=== PATIENT | female | born 1965 | race Caucasian/White ===

== ENCOUNTER → 2021-04-09 | Outpatient (CLI) | payer MEDICARE ==
[2015-07-24 07:52] VITALS: BP 112/78
[~2021-04-09] MED LIST: ALPR0.5T PO; ARIP5TAB13 PO; BUPR150T8 PO; DEXT30CA6 PO; DULO60CA7 PO; ESTR1TAB17 PO; OXYC1TAB7 PO
--- NOTE | 2021-04-09 16:56 | KCIC ---
CT of the thoracic spine without comparison for back pain, history of 2 spinal CORD stimulators. TECHNIQUE: Contiguous axial CT images are obtained through the thoracic spine. Sagittal and coronal r eformations are evaluated. FINDINGS: There are postsurgical changes of the stomach. There is a hiatal hernia, and the small prox imal gastric pouch is intrathoracic. There is postsurgical change of ACDF from C5 through C7.There ar e 2 spine stimulator leads, one of which ascends into the cervical canal of the cranial margin of the study, and the second of which terminates within the cervical canal posteriorly at T1. There is a se cond set of spine stimulator leads which terminate at T6. There is no fracture, dislocation, or acute osseous abnormality in any location. There is no alignment abnormality. There are small anterior ost eophytes at multiple levels. No significant bulky posterior osteophytes and no CT evidence of central canal stenosis. There is narrowing of the intervertebral disc space at T4-5, with vertebral body fus ion on the left, with left facet arthrosis, the combination of which results in marked reduction of t he foraminal diameter at this level, certainly possible of producing some degree of nerve root imping ement. This could be better evaluated with CT myelography if clinically warranted. Degenerative spond ylosis is seen at T9 as well with bulky marginal osteophytes, but no significant bony central canal o r neural foraminal stenosis. IMPRESSION: 1. Degenerative spondylosis most prominent T4-5 with vertebral body fusion on the left, and facet art hrosis, resulting in significant left neural foraminal narrowing, certainly possible producing some d egree of nerve root impingement. If clinically warranted, this could be better evaluated with CT myel ography. 2. Postsurgical changes of the stomach, with a sliding-type hernia resulting in the small proximal ga stric pouch being intrathoracic. 3. No abnormalities of the dual spinal cord stimulators. PQRS Compliance Statement: One or more of the following individualized dose reduction techniques were utilized for this examinat ion: 1. Automated exposure control 2. Adjustment of the mA and/or kV according to patient size 3. Use of iterative reconstruction technique Electronically signed by: Brennan Ramos MD (04/09/2021 4:54 PM) [id number]
== END ==
LOC: KCIC CT 13:05
PROVIDERS: ATTEND Family Medicine
DX: M47.814 Spondylosis without myelopathy or radiculopathy, thoracic region (principal); M48.04 Spinal stenosis, thoracic region; M25.78 Osteophyte, vertebrae; K44.9 Diaphragmatic hernia without obstruction or gangrene; K31.4 Gastric diverticulum
CPT/HCPCS: 72128

== ENCOUNTER → 2021-04-25 | Outpatient (CLI) | payer MEDICARE ==
[2015-07-24 07:52] VITALS: BP 112/78
[~2021-04-25] MED LIST changes: +CELE200C PO; +DEXT30CA15 PO; +DEXT30TA2 PO; +ESTR-113 PO; +IOHEXOL 180 MG/ML 10 ML VIAL. ONE; +LIOT25TA4 PO; +LISD70CA5 PO; +OMEP40CA7 PO; +SEMA1PEN3 SQ; +TOPI50TA8 PO; +methylPREDNISolone ACETATE 40 MG/ML VIAL. ONE; +methylPREDNISolone ACETATE 80 MG/ML VIAL. ONE; +vitamin d 3
--- NOTE | 2021-04-25 13:42 | PDOC ---
Progress Note - Pain Clinic Date of Service: DOS: DATE: 04/25/21 TIME: 13:38 Diagnosis: Dx: Thoracic radiculopathy with thoracic degenerative disc disease Post cervical laminectomy syndrome Cervical radiculopathy Myofascial pain Spinal cord stimulator History or Present Illness: HPI: 55-year-old female returns last seen 2013 after spinal cord stimulator placement patient now complaining of pain in the mid upper back and radiating pain around to the upper mid chest as well as into the upper abdomen patient has seen her neurosurgeon recently who is recommending conservative treatment and had a thoracic spine film performed showing some significant narrowing of the intervertebral disc base at T4-5 with vertebral body fusion on the left and left facet arthrosis resulting in marked reduction of the foraminal diameter at this level possible of producing some degree of nerve root impingement. I discussed this with her neurosurgeon and he is confident that the impingement at this level may be causing majority of her pain. Patient reports the pain is an 8 on scale 10 is worst 6 on average 6 its least is a 6 today patient reported sharp tight shooting burning stabbing can be constant severe can be unbearable in the mid upper back between the shoulder blades radiating anteriorly to the chest and into the upper abdomen. Patient reports no loss of motor function but is impeding her ability to walk stand change positions and disturbing her sleep at night frequently. Physical Exam: VS: Blood pressure is 110/74 pulse 98 respirations 18 temperature 97.8 F height is 5 foot 1 inch weight is 120 pounds PE: PHYSICAL EXAMINATION: GENERAL: The patient is awake, alert, oriented, appropriate, very pleasant in demeanor HEENT: Shows normocephalic, atraumatic. Extraocular movements are intact and symmetrical. Oral cavity: Mucous membranes moist and pink. Dentition is intact. NECK: Shows anterior throat supple without palpable lymphadenopathy noted. Swallow reflex symmetrical. CHEST: Shows normal on inspection. Breath sounds are clear bilaterally, distant no rales rhonchi wheezes auscultated. HEART: Shows S1, S2 clear. No murmurs auscultated. ABDOMEN: Soft, nontender, nondistended. No palpable organomegaly is noted. No rebound or guarding demonstrated. BACK: Shows spine grossly in the midline. Normal-appearing cervical lordotic curvature. There is slightly increased thoracic kyphosis, with well-healed midline surgical scar in the upper thoracic distribution, some minor flattening of the lumbar lordotic curvature. Lumbar paraspinous muscles show symmetrical on inspection, on palpation shows some moderate tenderness diffusely throughout the upper, middle and lower distribution of the paraspinous muscles bilaterally and also into the lower thoracic paraspinous musculature, firm and tender, but without specific trigger points, without radiation of pain. EXTREMITIES: Lower extremities show deep tendon reflexes 1 in the patellar and tendo calcaneus tendons. Motor exam is 5 on a scale of 5 with right dorsiflexion, extension, quadriceps and hamstring flexion and 5/5 on the left. Peripheral pulses are 1 posterior tibial. No peripheral edema is noted bilaterally. Lower extremities are warm and dry to touch, equal in color and appearance. SKIN: Shows warm and dry, good turgor. No edema. No sores, rashes or bruising throughout. Procedure: Procedure: Options were discussed with the patient. Patient's old chart reviews her current medication regimen updated current review of systems updated today as well. We will proceed with a thoracic epidural steroid injection today with fluoroscopic guidance. Risks were discussed including but not limited to: Bleeding, infection, possibility of epidural hematoma and subsequent neurological compromise, dural puncture, headaches, spinal cord and/or nerve damage, side effects of steroid medication, and poor results regarding pain control. Patient understands and wished to proceed. Patient return to clinic in approximate 2 weeks for follow-up, was counseled return appointment activity and side effects to be aware of. Medication Injected: Med Injected: Procedure is thoracic epidural steroid injection under local anesthetic using sterile prep and drape at the T4-5 level using C-arm fluoroscopic guidance in both AP and lateral views medications injected is 120 mg Depo-Medrol +5mL preservative-free normal saline and 2 mL contrast- condition at discharge is stable patient tolerated procedure well had no complications. Condition at Discharge: Condition at Discharge: Condition at discharge is stable, patient already procedure well and had no complications. MEGGAN KAMARA MD Apr 25, 2021 13:42
--- NOTE | 2021-04-25 13:43 | PDOC4 ---
Procedure Note: ICD 10 Code: ICD 10 Code: M 96.1 M54.14 M51.34 Procedure Note: Patient was consented for thoracic epidural steroid injection with fluoroscopic guidance. Risks were discussed including but not limited to: Bleeding, infection, possibility of epidural hematoma and subsequent neurological compromise, dural puncture, headaches, spinal cord and/or nerve damage, side effects of steroid medication, and poor results regarding pain control. Patient understands and wished to proceed. Procedure is thoracic epidural steroid injection under local anesthetic using sterile prep and drape at the T4-5 level using C-arm fluoroscopic guidance in both AP and lateral views medications injected is 120 mg Depo-Medrol +5mL preservative-free normal saline and 2 mL contrast- condition at discharge is stable patient tolerated procedure well had no complications. MEGGAN KAMARA MD Apr 25, 2021 13:43
== END | disposition home or self-care (01) ==
LOC: PNCL 12:28
PROVIDERS: ATTEND Anesthesiology
DX: M51.14 Intervertebral disc disorders with radiculopathy, thoracic region (principal); M79.18 Myalgia, other site; M96.1 Postlaminectomy syndrome, not elsewhere classified; F41.9 Anxiety disorder, unspecified; F32.9 Major depressive disorder, single episode, unspecified; Z90.49 Acquired absence of other specified parts of digestive tract; Z98.51 Tubal ligation status; Z90.710 Acquired absence of both cervix and uterus; Z98.890 Other specified postprocedural states; Z79.899 Other long term (current) drug therapy; Z88.0 Allergy status to penicillin; Z88.1 Allergy status to other antibiotic agents; Z88.2 Allergy status to sulfonamides; Z88.5 Allergy status to narcotic agent; Z88.8 Allergy status to other drugs, medicaments and biological substances
CPT/HCPCS: 62321; J1030; J1040; Q9965

== ENCOUNTER → 2021-05-09 | Outpatient (CLI) | payer MEDICARE ==
[2015-07-24 07:52] VITALS: BP 112/78
--- NOTE | 2021-05-09 09:00 | PDOC ---
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 Patient reports still radiating right and left lateral and into the upper abdominal region but her abdominal symptoms now have completely resolved patient reports he is able to eat comfortably did not have any nausea or vomiting no bloating sensation and she feels much better in that regard. Patient reports that the newer pain is lower in the thoracic spine exacerbated with sitting and mostly in her car when the seat pushes pressure on it but is also present at home patient reports otherwise doing much better is quite pleased with her progress patient reports pain is aching sharp at times tight at times shooting around the sides radiating as well burning sometimes and stabbing patient reports is a 7 on scale 10 is worse over the past week 5 on average 3 its least is a 3 today. Patient reports no bowel or bladder incontinence. Physical Exam: VS: Blood pressure is 113/78 pulse 94 respirations 18 temperature 98.7 F height is 5 foot 1 his weight is 117 pounds PE: PHYSICAL EXAMINATION: GENERAL: The patient is awake, alert, oriented, appropriate, very pleasant in demeanor HEENT: Shows normocephalic, atraumatic. Extraocular movements are intact and symmetrical. Oral cavity: Mucous membranes moist and pink. Dentition is intact. NECK: Shows anterior throat supple without palpable lymphadenopathy noted. Swallow reflex symmetrical. CHEST: Shows normal on inspection. Breath sounds are clear bilaterally, distant but no rales or rhonchi. HEART: Shows S1, S2 clear. No murmurs auscultated. ABDOMEN: Soft, nontender, nondistended. No palpable organomegaly is noted. BACK: Shows spine grossly in the midline. Normal-appearing cervical lordotic c urvature. There is slightly increased thoracic kyphosis, some minor flattening of the lumbar lordotic curvature. Thoracic paraspinous muscles show symmetrical inspection on palpation some moderate tenderness diffusely in the upper and middle distribution of the paraspinous muscles also some significant tenderness over the spinous processes approximately T9 level with out significant radiation on palpation but only moderate pain demonstrated with palpation. Patient has good rotation motion thoracic spine with lateral as well as extension flexion without significant increase in pain or radiation. EXTREMITIES: Lower extremities show deep tendon reflexes 1+ in the patellar and tendo calcaneus tendons. Motor exam is 5 on a scale of 5 with right dorsiflexion, extension, quadriceps and hamstring flexion and 5/5 on the left. Peripheral pulses are 1+ posterior tibial. No peripheral edema is noted bilaterally. Lower extremities are warm and dry. 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 SKIN: Shows warm and dry, good turgor. No edema. No sores, rashes or bruising throughout. Procedure: Procedure: Options discussed with the patient. Patient's old chart was reviewed his current medication regimen updated current view of systems updated today as well. We will proceed with a thoracic epidural steroid injection today with fluoroscopic guidance. Risks were discussed including but not limited to: Bleeding, infection, possibility of epidural hematoma and subsequent neurological compromise, dural puncture, headaches, spinal cord and/or nerve damage, side effects of steroid medication, and poor results regarding pain control. Patient understands and wished to proceed. Patient will return to the clinic in approximately weeks for follow-up, was counseled return appointment, [employer], and side effect to be aware of. Medication Injected: Med Injected: Procedure is thoracic epidural steroid injection under local anesthetic using sterile prep and drape at the T4-5 level using C-arm fluoroscopic guidance in both AP and lateral views medications injected is 120 mg Depo-Medrol +10mL preservative-free normal saline and 2 mL contrast- condition at discharge is stable patient tolerated procedure well had no complications. Condition at Discharge: Condition at Discharge: Condition at discharge is stable, patient tolerated the procedure well and had no complications. MEGGAN KAMARA MD May 09, 2021 09:00
--- NOTE | 2021-05-09 09:01 | PDOC4 ---
Procedure Note: ICD 10 Code: ICD 10 Code: M54.14 M51.34 Procedure Note: Patient was consented for thoracic epidural steroid injection with fluoroscopic guidance. Risks were discussed including but not limited to: Bleeding, infection, possibility of epidural hematoma and subsequent neurological compromise, dural puncture, headaches, spinal cord and/or nerve damage, side effects of steroid medication, and poor results regarding pain control. Patient understands and wished to proceed. Procedure is thoracic epidural steroid injection under local anesthetic using sterile prep and drape at the T4-5 level using C-arm fluoroscopic guidance in both AP and lateral views medications injected is 120 mg Depo-Medrol +10mL preservative-free normal saline and 2 mL contrast- condition at discharge is stable patient tolerated procedure well had no complications. MEGGAN KAMARA MD May 09, 2021 09:01
== END | disposition home or self-care (01) ==
LOC: PNCL 08:15
PROVIDERS: ATTEND Anesthesiology
DX: M51.34 Other intervertebral disc degeneration, thoracic region (principal); F41.9 Anxiety disorder, unspecified; F32.9 Major depressive disorder, single episode, unspecified; Z90.710 Acquired absence of both cervix and uterus; Z98.51 Tubal ligation status; Z98.890 Other specified postprocedural states; Z79.899 Other long term (current) drug therapy; Z88.0 Allergy status to penicillin; Z88.1 Allergy status to other antibiotic agents
CPT/HCPCS: 62321; J1030; J1040; Q9965

== ENCOUNTER → 2021-05-26 | Outpatient (CLI) | payer MEDICARE ==
[2015-07-24 07:52] VITALS: BP 112/78
--- NOTE | 2021-05-26 09:58 | PDOC ---
Progress Note - Pain Clinic Date of Service: DOS: DATE: 05/26/21 TIME: 09:54 Diagnosis: Dx: Thoracic radiculopathy with thoracic degenerative disc disease History or Present Illness: HPI: 55-year-old female returns for follow-up status post thoracic epidural steroid injection x2. Patient last seen May 09, 2021 patient did very well with about 75% improvement initially now down to about only 10% improvement over the last few days pain returned fairly significantly in the mid upper back between the shoulder blades with some radiating pain into the inferior aspect of the shoulders as well as anteriorly into the chest patient report is aching tight shooting around to the chest anteriorly bilaterally tingling and burning can be constant as well with activity better with sitting or laying down initially doing much better with distance walking doing household activities try with greater ease and sleeping better still better with laying down and stop generally awaken her from sleep most nights. Patient rates her pain as 8 on scale 10 is worst 5 on average 3 at its least is a 5 today. Patient reports no new motor or sensory deficits no bowel or bladder incontinence. Physical Exam: VS: Blood pressure is 115/74 pulse 98 respirations are 18 temperature 97.2 F height 5 feet 2 inches weight 114 pounds PE: PHYSICAL EXAMINATION: GENERAL: The patient is awake, alert, oriented, appropriate, very pleasant in demeanor HEENT: Shows normocephalic, atraumatic. Extraocular movements are intact and symmetrical. Oral cavity: Mucous membranes moist and pink. Dentition is intact. NECK: Shows anterior throat supple without palpable lymphadenopathy noted. Swallow reflex symmetrical. CHEST: Shows normal on inspection. Breath sounds are clear bilaterally, no rales or rhonchi. HEART: Shows S1, S2 clear. No murmurs auscultated. ABDOMEN: Soft, nontender, nondistended. No palpable organomegaly is noted. BACK: Shows spine grossly in the midline. Normal-appearing cervical lordotic curvature. There is slightly increased thoracic kyphosis, with well-healed surgical scarring noted, some flattening of the lumbar lordotic curvature. Lumbar paraspinous muscles show symmetrical on inspection, on palpation shows some moderate tenderness diffusely throughout the upper, middle and lower distribution of the paraspinous muscles bilaterally and also into the lower thoracic paraspinous musculature, firm and tender, without specific trigger points, without radiation of pain. The patient has good rotational motion of the lumbar spine. Thoracic spine shows significant tenderness with palpation in the upper middle distribution of the thoracic paraspinous musculature between the shoulder blades and the rhomboid muscles as well but without specific atrophy hypertrophy no trigger points and no radiation of pain. EXTREMITIES: Lower extremities show deep tendon reflexes 1+ in the patellar and tendo calcaneus tendons. Motor exam is 5 on a scale of 5 with right dorsiflexion, extension, quadriceps and hamstring flexion and 5/5 on the left. Peripheral pulses are 1+ posterior tibial. Nonpitting peripheral edema is noted bilaterally. Lower extremities are warm and dry SKIN: Shows warm and dry, good turgor. No edema. No sores, rashes or bruising throughout. Procedure: Procedure: Options were discussed with the patient. Patient chart was reviewed as her current medication regimen updated current review of systems updated today as well. We will proceed with a thoracic epidural steroid injection today with fluoroscopic guidance. Risks were discussed including but not limited to: Bleeding, infection, possibility of epidural hematoma and subsequent neurological compromise, dural puncture, headaches, spinal cord and/or nerve damage, side effects of steroid medication, and poor results regarding pain control. Patient understands and wished to proceed. Patient will return to the clinic in approximately 2 weeks for follow-up, was counseled as return appointment, activity level, and side effects beware patient also will meet with [employer] for reprogramming of her spinal cord stimulator today. Medication Injected: Med Injected: Procedure is thoracic epidural steroid injection under local anesthetic using sterile prep and drape at the T4-5 level using C-arm fluoroscopic guidance in both AP and lateral views medications injected is 120 mg Depo-Medrol +5mL preservative-free normal saline and 2 mL contrast- condition at discharge is stable patient tolerated procedure well had no complications. Condition at Discharge: Condition at Discharge: Condition at discharge is stable, paced tolerated procedure well and had no complications. MEGGAN KAMARA MD May 26, 2021 09:58
--- NOTE | 2021-05-26 09:59 | PDOC4 ---
Procedure Note: ICD 10 Code: ICD 10 Code: M54.14 M51.34 Procedure Note: Patient was consented for thoracic epidural steroid injection with fluoroscopic guidance. Risks were discussed including but not limited to: Bleeding, infection, possibility of epidural hematoma and subsequent neurological compromise, dural puncture, headaches, spinal cord and/or nerve damage, side effects of steroid medication, and poor results regarding pain control. Patient understands and wished to proceed. Procedure is thoracic epidural steroid injection under local anesthetic using sterile prep and drape at the T4-5 level using C-arm fluoroscopic guidance in both AP and lateral views medications injected is 120 mg Depo-Medrol +5mL preservative-free normal saline and 2 mL contrast- condition at discharge is stable patient tolerated procedure well had no complications. MEGGAN KAMARA MD May 26, 2021 09:59
== END | disposition home or self-care (01) ==
LOC: PNCL 09:21
PROVIDERS: ATTEND Anesthesiology
DX: M51.14 Intervertebral disc disorders with radiculopathy, thoracic region (principal); F41.9 Anxiety disorder, unspecified; F32.9 Major depressive disorder, single episode, unspecified; Z79.899 Other long term (current) drug therapy; Z90.49 Acquired absence of other specified parts of digestive tract; Z98.51 Tubal ligation status; Z98.890 Other specified postprocedural states; Z90.710 Acquired absence of both cervix and uterus; Z88.0 Allergy status to penicillin; Z88.1 Allergy status to other antibiotic agents; Z88.5 Allergy status to narcotic agent; Z88.8 Allergy status to other drugs, medicaments and biological substances
CPT/HCPCS: 62321; J1030; J1040; Q9965

== ENCOUNTER → 2021-06-16 | Outpatient (CLI) | payer MEDICARE ==
[2015-07-24 07:52] VITALS: BP 112/78
[~2021-06-16] MED LIST changes: -IOHEXOL 180 MG/ML 10 ML VIAL. ONE; +IOHEXOL 300 MG/ML 50 ML VIAL. IT ONE; +LIDOCAINE 1% Multi-Dose 20 ML VIAL. ID ONE; -methylPREDNISolone ACETATE 40 MG/ML VIAL. ONE; -methylPREDNISolone ACETATE 80 MG/ML VIAL. ONE
--- NOTE | 2021-06-16 16:53 | KCIC ---
Procedure: CERVICAL AND THORACIC MYELOGRAM Indication: Neck and back pain. Leg pain and numbness of the feet. Technique: The patient was informed of the risks of the procedure. All questions were answered. Patient signed a written consent form for the myelogram. The patient was placed in a prone position on the fluoroscopy table. External site of the lower back was prepped and draped in the usual sterile fashion. Betadine was utilized for cleansing solution. 1 % lidocaine was utilized for local anesthesia. A 22-gauge spinal needle was advanced to the L3-L4 upon which there was return of clear CSF. Approxi mately 10 cc of Omnipaque 300 was then injected during fluoroscopic visualization. The needle was re moved. The patient was positioned on their right side and head tilted downward facilitating contrast extension to the cervical spine. Subsequently the patient was transferred to the CT department for im aging of the cervical and thoracic spine. There were no immediate complications. Fluoroscopy time: 1 minute 44 seconds Number of images: 4 Impression: Technically successful intrathecal administration of contrast. See the separate CT report for a descr iption of cervical and thoracic findings. Electronically signed by: CATY CARRASCO MD (06/16/2021 4:50 PM) [id number]
--- NOTE | 2021-06-16 17:17 | KCIC ---
STUDY: 1. CT cervical spine with contrast 2. CT thoracic spine with contrast INDICATION: Neck and back pain. COMPARISON: CT thoracic spine 04/09/2021 TECHNIQUE: Axial CT imaging of the cervical and thoracic spine performed after the intrathecal admini stration of Omnipaque 300. The injection portion of the procedure is detailed separately. Coronal and sagittal reformats were obtained. One or more of the following individualized dose reduction techniques were utilized for this examinat ion: 1. Automated exposure control 2. Adjustment of the mA and/or kV according to patient size 3. Use of iterative reconstruction technique. FINDINGS: CERVICAL SPINE: Spinal cord stimulator device with electrode paddles extending from C2 down to C5 and also seen at T1 extending beyond the inferior field of view. Status post anterior cervical discectomy and fusion from C4 through C7. The hardware is intact and we ll fixated. Intervening interbody spacers. Solid bony bridging at C5-C6 and C6-C7. Lesser extent of b kenny bridging is seen at C4-C5. Partial fusion across the bilateral C5-C6 facets and the right C6-C7 f acet. No listhesis. Mild discogenic arthrosis without disc space collapse at the junctional C3-C4 and C7-T1 levels. Chronic changes at the atlantodental interface. No acute fracture. Normal morphology of the cervical cord. Scattered intrathecal gas iatrogenic from the injection. Unremarkable paraspinous soft tissues. No thyroid nodule. C1-C2: The region of the foramen magnum is patent. C2-C3: Patent central canal and neural foramina. C3-C4: Mild disc osteophyte complex and left slightly more so than right uncovertebral joint hypertro phy. No significant facet arthrosis. Patent central canal and neural foramina. C4-C5: Endplate osteophytic ridging and mild uncovertebral joint hypertrophy. Minimal facet arthrosis on the right. Patent central canal. Minimal osseous neural foraminal narrowing bilaterally. C5-C6: Operative level. Mild bony ridging at the site of vertebral body fusion. No significant facet arthrosis. Patent central canal and left neural foramen. Minimal osseous neural foraminal narrowing o n the right. C6-C7: Operative level. Minimal bony bridging at the site of vertebral body fusion. No significant fa cet arthrosis. Patent central canal and neural foramina. C7-T1: Disc bulge mildly flattens the ventral cord. Minimal osteophytic ridging. Mild facet arthrosis . Mild central canal stenosis. Patent neural foramina. THORACIC SPINE: Spinal cord stimulator devices with electrode paddles within the canal at T1 and T2 and extending out between the T2 and T3 spinous processes. More inferiorly electrode paddles from T5-T6 down to T8. Minimal sigmoid curvature directed to the right at T4-T5 and faintly to the left at the lower thoraci c spine. Thoracic kyphosis is within normal limits. Developmental partial fusion across the T4-T5 dis c space and with fusion across the corresponding posterior elements to include the spinous processes. No acute fracture or aggressive osseous abnormality. Endplate osteophytic ridging at multiple levels . No advanced disc space collapse. Partially imaged sequela of bariatric surgery. Mildly patulous lumen at the gastroesophageal junction . Cholecystectomy clips. A few granulomas. Unremarkable paraspinous soft tissues. T1-T2 and T2-T3: No significant degenerative change. Patent central canal and neural foramina. T3-T4: Mild discogenic arthrosis eccentric to the left and minimal endplate osteophytic ridging. Mild osseous neural foraminal stenosis on the right. Patent central canal. T4-T5: Developmentally small left neural foramen but still patent. Patent central canal. T5-T6: Severe facet arthrosis on the left and mild on the right. No relevant disc bulge. The central canal is patent. Moderate osseous neural foraminal stenosis on the left. T6-T7: Patent central canal and neural foramina. T7-T8: Right paracentral/lateral recess extrusion measuring 4 mm AP by 9 mm craniocaudal and with a t ransverse base estimated at 9 mm. This contacts and deforms the ventral right hemicord and contribute s to mild right eccentric canal stenosis and narrowing of the right lateral recess. Patent neural for jon. T8-T9 through T12-L1: No significant degenerative changes. Patent central canal and neural foramina. IMPRESSION: CERVICAL SPINE: 1. Intact and well fixated ACDF hardware from C4 through C7. Solid osseous fusion across the C5-C6 an d C6-C7 vertebral bodies. Less pronounced fusion at C4-C5 but there does appear to be some bony bridg ing. 2. Mild degenerative changes at the junctional C3-C4 and C7-T1 levels with a mild disc bulge at C7-T1 flattening the ventral cord and contributing to mild central canal stenosis. The central canal is pa tent elsewhere throughout the cervical spine. No significant neural foraminal stenosis throughout the cervical spine. THORACIC SPINE: 1. Developmental fusion across the T4-T5 vertebral bodies and posterior elements resulting in mild de xtrocurvature at this location. Isolated severe facet arthrosis on the left at T5-T6 which may be rel ated to altered biomechanics secondary to the fusion. Moderate resultant neural foraminal stenosis on the left at T5-T6. 2. Right paracentral/lateral recess disc extrusion at T7-T8 measuring up to 4 mm AP by 9 mm transvers e by 9 mm craniocaudal. This contacts and deforms the right ventral hemicord and contributes to mild central canal stenosis and stenosis of the right lateral recess. Patent central canal elsewhere throu ghout the thoracic spine. 3. Facet arthrosis and endplate osteophytic ridging with mild osseous neural foraminal stenosis on th e right at T3-T4. Electronically signed by: CATY CARRASCO MD (06/16/2021 5:14 PM) [id number]
== END | disposition home or self-care (01) ==
LOC: KCIC 12:51
PROVIDERS: ATTEND Neurological Surgery
DX: M54.50 Low back pain, unspecified (principal); M54.2 Cervicalgia; M48.04 Spinal stenosis, thoracic region; M79.605 Pain in left leg; M79.604 Pain in right leg; F41.9 Anxiety disorder, unspecified; F32.9 Major depressive disorder, single episode, unspecified; Z98.51 Tubal ligation status; Z90.49 Acquired absence of other specified parts of digestive tract; Z90.710 Acquired absence of both cervix and uterus; Z98.890 Other specified postprocedural states; Z79.899 Other long term (current) drug therapy; Z88.0 Allergy status to penicillin; Z88.1 Allergy status to other antibiotic agents; Z88.5 Allergy status to narcotic agent
CPT/HCPCS: 62305; 72126; 72129; J3490; Q9967

== ENCOUNTER → 2021-06-23 | Outpatient (CLI) | payer MEDICARE ==
[2015-07-24 07:52] VITALS: BP 112/78
[~2021-06-23] MED LIST changes: +IOHEXOL 180 MG/ML 10 ML VIAL. ONE; -IOHEXOL 300 MG/ML 50 ML VIAL. IT ONE; -LIDOCAINE 1% Multi-Dose 20 ML VIAL. ID ONE
--- NOTE | 2021-06-23 10:46 | PDOC ---
Progress Note - Pain Clinic Date of Service: DOS: DATE: 06/23/21 TIME: 10:41 Diagnosis: Dx: Thoracic radiculopathy thoracic degenerative disc disease Post dural puncture headache History or Present Illness: HPI: 55-year-old female presents after myelogram 1 week ago with a post dural puncture headache positional headache significant opined the eyes also top of the head more on the left than the right side of the face worse with standing walking changing positions much better with sitting or laying down patient reports pain is a 10 on scale 10 is worst 8 on average 7 its least and is an 8 today patient reports laying down decreases the headache significantly is not completely relieved patient is had some photophobia as well and felt like a "ice pick was in my eye" patient reports been exactly 1 week since the post dural puncture headache began after lumbar puncture for myelogram. Patient reports no loss of motor function but significant to headache and photophobia as noted. Patient is maintained hydration as well as analgesics [id number] without significant reduction in headache. Physical Exam: VS: Blood pressure is 109/70 pulse 114 respirations 16 temperature 98.2 F height is 5 foot 1 inches weight is 108 pounds PE: PHYSICAL EXAMINATION: GENERAL: The patient is awake, alert, oriented, appropriate, very pleasant demeanor HEENT: Shows normocephalic, atraumatic. Extraocular movements are intact and symmetrical. Oral cavity: Mucous membranes moist and pink. Dentition is intact. NECK: Shows anterior throat supple without palpable lymphadenopathy noted. Swallow reflex symmetrical. CHEST: Shows normal on inspection. Breath sounds are clear bilaterally, distant but no rales or rhonchi. HEART: Shows S1, S2 clear. No murmurs auscultated. ABDOMEN: Soft, nontender, nondistended. No palpable organomegaly is noted. No rebound or guarding demonstrated. BACK: Shows spine grossly in the midline. Normal-appearing cervical lordotic curvature. There is slightly increased thoracic kyphosis, some minor flattening of the lumbar lordotic curvature, well-healed surgical scars are noted and easily palpable spinal cord stimulator generator is right and left with well- healed surgical scars as well. Lumbar paraspinous muscles show symmetrical on inspection, on palpation shows some moderate tenderness diffusely throughout the upper, middle and lower distribution of the paraspinous muscles without specific trigger points, without radiation of pain. The patient has good rotational mot ion of the lumbar spine. EXTREMITIES: Lower extremities show deep tendon reflexes 2+ in the patellar and tendo calcaneus tendons. Motor exam is 5 on a scale of 5 with right dorsiflexion, extension, quadriceps and hamstring flexion and 5/5 on the left. Peripheral pulses are 1+ posterior tibial. No peripheral edema is noted bilaterally. Lower extremities are warm and dry. SKIN: Shows warm and dry, good turgor. No edema. No sores, rashes or bruising throughout. Procedure: Procedure: Options discussed with the patient. Patient chart was reviewed as her current medication regimen updated review of systems updated today as well. We will proceed with a lumbar epidural blood patch with fluoroscopic guidance. Risks were discussed including but not limited to: Bleeding, infection, possibility of epidural hematoma and subsequent neurological compromise, dural puncture, headaches, spinal cord and/or nerve damage,and poor results regarding pain control. Patient understands and wished to proceed. Medication Injected: Med Injected: Procedure is lumbar epidural blood patch injection under local anesthetic using sterile prep and drape at the L4-5 level using C-arm fluoroscopic guidance in both AP and lateral views, 20 cc patient is on blood taken under sterile technique from right antecubital vein sterilely transferred to epidural space, using 2 mL contrast in the epidural space and confirmed epidural spread, without washout or uptake.- condition at discharge is stable patient tolerated procedure well had no complications. Condition at Discharge: Condition at Discharge: Condition at discharge stable, patient tolerated procedure well and had no complications. MEGGAN KAMARA MD Jun 23, 2021 10:46
--- NOTE | 2021-06-23 10:47 | PDOC4 ---
Procedure Note: ICD 10 Code: ICD 10 Code: G 97.1 Procedure Note: Patient was consented for epidural blood patch with fluoroscopic guidance. Risks were discussed including but not limited to: Bleeding, infection, possibility of epidural hematoma and subsequent neurological compromise, dural puncture, headaches, spinal cord and/or nerve damage, and poor results regarding pain control. Patient understands and wished to proceed. Procedure is lumbar epidural blood patch injection under local anesthetic using sterile prep and drape at the L4-5 level using C-arm fluoroscopic guidance in both AP and lateral views, 20 cc patient is on blood taken under sterile technique from right antecubital vein sterilely transferred to epidural space, using 2 mL contrast in the epidural space and confirmed epidural spread, without washout or uptake.- condition at discharge is stable patient tolerated procedure well had no complications. MEGGAN KAMARA MD Jun 23, 2021 10:47
== END | disposition home or self-care (01) ==
LOC: PNCL 10:02
PROVIDERS: ATTEND Anesthesiology
DX: M51.14 Intervertebral disc disorders with radiculopathy, thoracic region (principal); G97.1 Other reaction to spinal and lumbar puncture; F41.9 Anxiety disorder, unspecified; F32.9 Major depressive disorder, single episode, unspecified; Z90.49 Acquired absence of other specified parts of digestive tract; Z98.51 Tubal ligation status; Z98.890 Other specified postprocedural states; Z79.899 Other long term (current) drug therapy; Z90.710 Acquired absence of both cervix and uterus; Z88.0 Allergy status to penicillin; Z88.5 Allergy status to narcotic agent; Z88.1 Allergy status to other antibiotic agents; Z88.8 Allergy status to other drugs, medicaments and biological substances
CPT/HCPCS: 62273; 77003; Q9965